=== PATIENT | female | born 1935 | race Caucasian/White ===

== ENCOUNTER → 2017-02-10 | Outpatient (CLI) | payer MEDICARE | END | disposition home or self-care (01) | LOC: WOUND 08:38 | PROVIDERS: ATTEND Physician Assistant | DX: L97.522 Non-pressure chronic ulcer of other part of left foot with fat layer exposed (principal); I12.9 Hypertensive chronic kidney disease with stage 1 through stage 4 chronic kidney disease, or unspecified chronic kidney disease; N18.3 Chronic kidney disease, stage 3 (moderate); E78.5 Hyperlipidemia, unspecified; E03.9 Hypothyroidism, unspecified; Z86.73 Personal history of transient ischemic attack (TIA), and cerebral infarction without residual deficits; Z85.51 Personal history of malignant neoplasm of bladder; Z87.891 Personal history of nicotine dependence; Z72.89 Other problems related to lifestyle | CPT/HCPCS: 11042; G0463; WOU0463 ==

== ENCOUNTER → 2017-02-17 | Outpatient (CLI) | payer MEDICARE | END | disposition home or self-care (01) | LOC: WOUND 08:46 | PROVIDERS: ATTEND Physician Assistant | DX: L97.522 Non-pressure chronic ulcer of other part of left foot with fat layer exposed (principal); M86.18 Other acute osteomyelitis, other site; E78.5 Hyperlipidemia, unspecified; I12.9 Hypertensive chronic kidney disease with stage 1 through stage 4 chronic kidney disease, or unspecified chronic kidney disease; N18.3 Chronic kidney disease, stage 3 (moderate); E03.9 Hypothyroidism, unspecified; Z86.73 Personal history of transient ischemic attack (TIA), and cerebral infarction without residual deficits; Z85.51 Personal history of malignant neoplasm of bladder; Z79.01 Long term (current) use of anticoagulants; Z72.89 Other problems related to lifestyle; Z87.891 Personal history of nicotine dependence; Z90.710 Acquired absence of both cervix and uterus | CPT/HCPCS: 97597 ==

== ENCOUNTER → 2017-02-25 | Outpatient (CLI) | payer MEDICARE | END | disposition home or self-care (01) | LOC: WOUND 12:42 | PROVIDERS: ATTEND Internal Medicine Infectious Disease | DX: L97.522 Non-pressure chronic ulcer of other part of left foot with fat layer exposed (principal); M86.172 Other acute osteomyelitis, left ankle and foot; I12.9 Hypertensive chronic kidney disease with stage 1 through stage 4 chronic kidney disease, or unspecified chronic kidney disease; N18.3 Chronic kidney disease, stage 3 (moderate); E03.9 Hypothyroidism, unspecified; E78.5 Hyperlipidemia, unspecified; Z85.51 Personal history of malignant neoplasm of bladder; Z86.73 Personal history of transient ischemic attack (TIA), and cerebral infarction without residual deficits; Z79.01 Long term (current) use of anticoagulants; Z90.710 Acquired absence of both cervix and uterus; Z87.891 Personal history of nicotine dependence; Z72.89 Other problems related to lifestyle | CPT/HCPCS: 11042; G0463; WOU0463 ==

== ENCOUNTER → 2017-02-28 | Outpatient (CLI) | payer MEDICARE ==
[~2017-02-28] MED LIST: VISIPAQUE 270 MG/ML, 50ML BOTTLE ONE
== END | disposition home or self-care (01) ==
LOC: RAD 13:02
PROVIDERS: ATTEND Family Medicine
DX: Z45.2 Encounter for adjustment and management of vascular access device (principal); M86.179 Other acute osteomyelitis, unspecified ankle and foot
CPT/HCPCS: 36569; 76937; 77001; C1751; C1769; Q9966

== ENCOUNTER → 2017-03-04 | Outpatient (CLI) | payer MEDICARE | LOC: WOUND 10:33 | PROVIDERS: ATTEND Internal Medicine | DX: S90.412D Abrasion, left great toe, subsequent encounter (principal); M86.172 Other acute osteomyelitis, left ankle and foot; I12.9 Hypertensive chronic kidney disease with stage 1 through stage 4 chronic kidney disease, or unspecified chronic kidney disease; N18.3 Chronic kidney disease, stage 3 (moderate); E78.5 Hyperlipidemia, unspecified; E03.9 Hypothyroidism, unspecified; Z86.73 Personal history of transient ischemic attack (TIA), and cerebral infarction without residual deficits; Z85.51 Personal history of malignant neoplasm of bladder; Z87.891 Personal history of nicotine dependence; Z79.01 Long term (current) use of anticoagulants; Z72.89 Other problems related to lifestyle; Z90.710 Acquired absence of both cervix and uterus; X58.XXXD Exposure to other specified factors, subsequent encounter | CPT/HCPCS: 11042 ==

== ENCOUNTER → 2017-03-13 | Outpatient (CLI) | payer MEDICARE | END | disposition home or self-care (01) | LOC: WOUND 10:36 | PROVIDERS: ATTEND Internal Medicine | DX: L97.522 Non-pressure chronic ulcer of other part of left foot with fat layer exposed (principal); M86.172 Other acute osteomyelitis, left ankle and foot; I12.9 Hypertensive chronic kidney disease with stage 1 through stage 4 chronic kidney disease, or unspecified chronic kidney disease; N18.3 Chronic kidney disease, stage 3 (moderate); M20.12 Hallux valgus (acquired), left foot; J44.9 Chronic obstructive pulmonary disease, unspecified; E03.9 Hypothyroidism, unspecified; Z86.73 Personal history of transient ischemic attack (TIA), and cerebral infarction without residual deficits; Z85.51 Personal history of malignant neoplasm of bladder; Z87.891 Personal history of nicotine dependence; Z72.89 Other problems related to lifestyle | CPT/HCPCS: 11044 ==

== ENCOUNTER → 2017-03-20 | Outpatient (CLI) | payer MEDICARE ==
[~2017-03-20] MED LIST changes: +ASPI-496 PO; +ATEN25TA PO; +CLOP75TA PO; +DIPH1TAB PO; +ERTA1VIA IV; +FOLI0.4T2 PO; +LEVO100T5 PO; +LISI-170 PO; +LOPE2CAP94 PO; +LOVA20TA2 PO; +OXYC-223 PO; +SODI650T PO; -VISIPAQUE 270 MG/ML, 50ML BOTTLE ONE; +VITA150T PO
== END | disposition home or self-care (01) ==
LOC: WOUND 09:00
PROVIDERS: ATTEND Podiatrist Foot & Ankle Surgery
DX: L97.522 Non-pressure chronic ulcer of other part of left foot with fat layer exposed (principal); I12.9 Hypertensive chronic kidney disease with stage 1 through stage 4 chronic kidney disease, or unspecified chronic kidney disease; N18.3 Chronic kidney disease, stage 3 (moderate); E78.5 Hyperlipidemia, unspecified; E03.9 Hypothyroidism, unspecified; J44.9 Chronic obstructive pulmonary disease, unspecified; M86.172 Other acute osteomyelitis, left ankle and foot; Z85.51 Personal history of malignant neoplasm of bladder; Z86.73 Personal history of transient ischemic attack (TIA), and cerebral infarction without residual deficits; Z87.891 Personal history of nicotine dependence; Z72.89 Other problems related to lifestyle
CPT/HCPCS: 11042

== ENCOUNTER → 2017-03-20 | Outpatient (CLI) | payer MEDICARE | END | disposition home or self-care (01) | LOC: CVU 06:56 | PROVIDERS: ATTEND Podiatrist Foot & Ankle Surgery | DX: I70.203 Unspecified atherosclerosis of native arteries of extremities, bilateral legs (principal); L97.524 Non-pressure chronic ulcer of other part of left foot with necrosis of bone; J44.9 Chronic obstructive pulmonary disease, unspecified; I10 Essential (primary) hypertension; Z86.73 Personal history of transient ischemic attack (TIA), and cerebral infarction without residual deficits; Z85.51 Personal history of malignant neoplasm of bladder | CPT/HCPCS: 93922; 93925 ==

== ENCOUNTER → 2017-03-27 | Outpatient (CLI) | payer MEDICARE | END | disposition home or self-care (01) | LOC: WOUND 09:30 | PROVIDERS: ATTEND Podiatrist Foot & Ankle Surgery | DX: L97.522 Non-pressure chronic ulcer of other part of left foot with fat layer exposed (principal); M86.172 Other acute osteomyelitis, left ankle and foot; M20.12 Hallux valgus (acquired), left foot; I73.9 Peripheral vascular disease, unspecified; I12.9 Hypertensive chronic kidney disease with stage 1 through stage 4 chronic kidney disease, or unspecified chronic kidney disease; N18.3 Chronic kidney disease, stage 3 (moderate); E78.5 Hyperlipidemia, unspecified; E03.9 Hypothyroidism, unspecified; Z86.73 Personal history of transient ischemic attack (TIA), and cerebral infarction without residual deficits; Z85.51 Personal history of malignant neoplasm of bladder; Z87.891 Personal history of nicotine dependence; Z72.89 Other problems related to lifestyle; Z90.710 Acquired absence of both cervix and uterus; Z79.01 Long term (current) use of anticoagulants | CPT/HCPCS: 11044 ==

== ENCOUNTER 2017-04-02 09:46 | Inpatient (IN) | payer MEDICARE ==
[~2017-04-02] VITALS: Ht 170.2 cm; Wt 63.5 kg
[2017-04-02] MEDS ORDERED: SODIUM CHLORIDE 0.9% 1,000ML IVBOLUS ONE (11:00)
[2017-04-02] MEDS ORDERED: SODIUM CHLORIDE FLUSH 10ML SYR IVF ONE (11:00)
[2017-04-02 11:44] LABS: ASPARTATE AMINO TRANSFERASE 24 U/L (15-37); BLOOD UREA NITROGEN 31 mg/dL (7-18)
[2017-04-02 11:50] LABS: IS PT STATUS REG ER OR PRE ER? YES
[2017-04-02] MEDS ORDERED: OXYC-223 PO (12:42)
[2017-04-02] MEDS ORDERED: LOVA20TA2 PO (12:42)
[2017-04-02] MEDS ORDERED: CLOP75TA PO (12:42)
[2017-04-02] MEDS ORDERED: LISI-170 PO (12:42)
[2017-04-02] MEDS ORDERED: DIPH1TAB PO (12:42)
[2017-04-02] MEDS ORDERED: LEVO100T5 PO (12:42)
[2017-04-02] MEDS ORDERED: FOLI0.4T2 PO (12:44)
[2017-04-02] MEDS ORDERED: SODI650T PO (12:44)
[2017-04-02] MEDS ORDERED: ATEN25TA PO (12:44)
[2017-04-02] MEDS ORDERED: VITA150T PO (12:44)
[2017-04-02] MEDS ORDERED: ASPI-496 PO (12:45)
[2017-04-02] MEDS ORDERED: LOPE2CAP94 PO (12:45)
[2017-04-02] MEDS ORDERED: ERTA1VIA IV (12:46)
[2017-04-02] MEDS ORDERED: CEFTRIAXONE PMX 1GM/50ML 50 ML IV ONE (14:00)
[2017-04-02] MEDS ORDERED: CEFTRIAXONE PMX 1GM/50ML 50 ML ONE (14:00)
[2017-04-02 14:35] LABS: C-REACTIVE PROTEIN, QUANT 0.09 mg/dL (0.02-0.49)
[2017-04-02 15:33] VITALS: BP 98/60
[2017-04-02] MEDS ORDERED: D5%-0.45NACL+KCL 20MEQ 1,000 ML IV SCH (16:27)
[2017-04-02] MEDS ORDERED: LABETALOL 5MG/ML, 20ML IVPush PRN (16:30)
[2017-04-02] MEDS ORDERED: ACETAMINOPHEN 325 MG TABLET PO PRN (16:30)
[2017-04-02] MEDS ORDERED: CALCIUM GLUCONATE 4.6 MEQ in SODIUM CHLORIDE 0.9% 50 ML IV ONE (18:00)
[2017-04-02 19:21] VITALS: BP 127/77
[2017-04-02] MEDS ORDERED: OXYcodone/APAP 7.5/325MG TABLET PO SCH (21:00)
[2017-04-02] MEDS: MEROPENEM 500 MG in SODIUM CHLORIDE 0.9% 100 ML IV SCH (21:04)
[2017-04-02] MEDS: DIPHENOXYLATE/ATROPINE TABLET PO SCH (22:08)
[2017-04-02] MEDS: HEPARIN 5,000 UNITS/ML, 1ML SQ SCH (22:08)
[2017-04-02] MEDS: SIMVASTATIN 10 MG TABLET PO SCH (22:08)
[2017-04-02 22:29] VITALS: BP 130/73
[2017-04-03] VITALS (7 sets, daily range): BP systolic 105–165; BP diastolic 64–91
[2017-04-03] MEDS: HEPARIN 5,000 UNITS/ML, 1ML SQ SCH ×3 (05:30→22:27)
[2017-04-03 06:02] LABS: BLOOD UREA NITROGEN 25 mg/dL (7-18)
[2017-04-03] MEDS ORDERED: ERTAPENEM 1 GM IV SCH (09:00)
[2017-04-03] MEDS ORDERED: ATENOLOL 25 MG TABLET PO SCH (09:00)
[2017-04-03] MEDS: MEROPENEM 500 MG in SODIUM CHLORIDE 0.9% 100 ML IV SCH (09:00)
[2017-04-03] MEDS: LOPERAMIDE 2 MG CAPSULE PO SCH ×3 (09:15→18:26)
[2017-04-03] MEDS: LEVOTHYROXINE 100 MCG TABLET PO SCH (09:16)
[2017-04-03] MEDS: FOLIC ACID 1 MG TABLET PO SCH (09:16)
[2017-04-03] MEDS: ATENOLOL 25 MG TABLET PO SCH (09:16)
[2017-04-03] MEDS: SODIUM BICARBONATE 650 MG TABLET PO SCH (09:16)
[2017-04-03] MEDS: CLOPIDOGREL 75 MG TABLET PO SCH (09:16)
[2017-04-03] MEDS: ASPIRIN 81 MG TABLET EC PO SCH (09:16)
[2017-04-03] MEDS: DIPHENOXYLATE/ATROPINE TABLET PO SCH ×3 (09:18→20:25)
[2017-04-03] MEDS: MULTIVITS,STRESS FORMULA 1 TABLET PO SCH (09:18)
[2017-04-03] MEDS: OXYcodone/APAP 7.5/325MG TABLET PO PRN (10:14)
[2017-04-03] MEDS ORDERED: LABETALOL 5MG/ML, 20ML IVPush PRN (14:12)
[2017-04-03] MEDS ORDERED: PIPERACILLIN/TAZO/PMX 2.25GM 50 ML IV SCH (15:00)
[2017-04-03] MEDS: SIMVASTATIN 10 MG TABLET PO SCH (20:24)
[2017-04-03] MEDS: PIPERACILLIN/TAZO 2.25 GM in SODIUM CHLORIDE 0.9% 100 ML IV SCH (20:24)
[2017-04-04] MEDS: PIPERACILLIN/TAZO 2.25 GM in SODIUM CHLORIDE 0.9% 100 ML IV SCH ×3 (02:47→21:44)
[2017-04-04 04:00] VITALS: BP 145/81
[2017-04-04 05:56] LABS: BLOOD UREA NITROGEN 25 mg/dL (7-18)
[2017-04-04] MEDS: HEPARIN 5,000 UNITS/ML, 1ML SQ SCH ×2 (06:12→16:40)
[2017-04-04 06:44] VITALS: BP 146/80
[2017-04-04 06:45] VITALS: BP 150/87
[2017-04-04 06:46] VITALS: BP 154/98
[2017-04-04] MEDS: LOPERAMIDE 2 MG CAPSULE PO SCH ×3 (07:00→16:00)
[2017-04-04] MEDS: LEVOTHYROXINE 100 MCG TABLET PO SCH (08:34)
[2017-04-04] MEDS: ATENOLOL 25 MG TABLET PO SCH (08:34)
[2017-04-04] MEDS: CLOPIDOGREL 75 MG TABLET PO SCH (08:34)
[2017-04-04] MEDS: ASPIRIN 81 MG TABLET EC PO SCH (08:34)
[2017-04-04] MEDS: DIPHENOXYLATE/ATROPINE TABLET PO SCH ×3 (08:34→21:44)
[2017-04-04] MEDS: FOLIC ACID 1 MG TABLET PO SCH (08:34)
[2017-04-04] MEDS: SODIUM BICARBONATE 650 MG TABLET PO SCH (08:35)
[2017-04-04] MEDS: MULTIVITS,STRESS FORMULA 1 TABLET PO SCH (08:35)
[2017-04-04] MEDS: PIPERACILLIN/TAZO/PMX 2.25GM 50 ML IV SCH ×2 (10:34→16:40)
[2017-04-04 14:00] VITALS: BP 145/73
[2017-04-04 20:30] VITALS: BP_SYST 122; BP_SYST 129; BP_SYST 130; BP_DIAS 61; BP_DIAS 69; BP_DIAS 82
[2017-04-04] MEDS: MELATONIN 3 MG TABLET PO PRN (21:44)
[2017-04-04] MEDS: SIMVASTATIN 10 MG TABLET PO SCH (21:45)
[2017-04-05] MEDS: HEPARIN 5,000 UNITS/ML, 1ML SQ SCH ×3 (01:31→17:23)
[2017-04-05 02:00] VITALS: BP 125/68
[2017-04-05 02:05] VITALS: BP 131/77
[2017-04-05 02:07] VITALS: BP 118/68
[2017-04-05] MEDS: PIPERACILLIN/TAZO 2.25 GM in SODIUM CHLORIDE 0.9% 100 ML IV SCH ×2 (03:15→08:24)
[2017-04-05 06:30] VITALS: BP_SYST 121; BP_SYST 126; BP_SYST 131; BP_DIAS 77; BP_DIAS 78; BP_DIAS 82
[2017-04-05] MEDS: LOPERAMIDE 2 MG CAPSULE PO SCH ×4 (07:00→20:27)
[2017-04-05] MEDS: DIPHENOXYLATE/ATROPINE TABLET PO SCH ×3 (08:22→19:22)
[2017-04-05] MEDS: MULTIVITS,STRESS FORMULA 1 TABLET PO SCH (08:23)
[2017-04-05] MEDS: ASPIRIN 81 MG TABLET EC PO SCH (08:23)
[2017-04-05] MEDS: FOLIC ACID 1 MG TABLET PO SCH (08:23)
[2017-04-05] MEDS: CLOPIDOGREL 75 MG TABLET PO SCH (08:23)
[2017-04-05] MEDS: SODIUM BICARBONATE 650 MG TABLET PO SCH (08:23)
[2017-04-05] MEDS: ATENOLOL 25 MG TABLET PO SCH (08:23)
[2017-04-05] MEDS: LEVOTHYROXINE 100 MCG TABLET PO SCH (08:23)
[2017-04-05 13:28] VITALS: BP 125/64
[2017-04-05] MEDS: PIPERACILLIN/TAZO/PMX 2.25GM 50 ML IVPB SCH ×2 (15:05→20:27)
[2017-04-05 20:11] VITALS: BP 142/81
[2017-04-05] MEDS: SIMVASTATIN 10 MG TABLET PO SCH (20:27)
[2017-04-05] MEDS: MELATONIN 3 MG TABLET PO PRN (23:12)
[2017-04-05] MEDS: OXYcodone/APAP 7.5/325MG TABLET PO PRN (23:12)
[2017-04-06 00:44] VITALS: BP 131/74
[2017-04-06] MEDS: HEPARIN 5,000 UNITS/ML, 1ML SQ SCH ×3 (01:00→17:56)
[2017-04-06] MEDS: PIPERACILLIN/TAZO/PMX 2.25GM 50 ML IVPB SCH ×4 (03:25→20:13)
[2017-04-06 07:39] VITALS: BP 136/77
[2017-04-06] MEDS: DIPHENOXYLATE/ATROPINE TABLET PO SCH ×3 (09:00→20:13)
[2017-04-06] MEDS: MULTIVITS,STRESS FORMULA 1 TABLET PO SCH (09:35)
[2017-04-06] MEDS: CLOPIDOGREL 75 MG TABLET PO SCH (09:36)
[2017-04-06] MEDS: LOPERAMIDE 2 MG CAPSULE PO SCH ×4 (09:36→20:13)
[2017-04-06] MEDS: ASPIRIN 81 MG TABLET EC PO SCH (09:36)
[2017-04-06] MEDS: FOLIC ACID 1 MG TABLET PO SCH (09:36)
[2017-04-06] MEDS: SODIUM BICARBONATE 650 MG TABLET PO SCH (09:36)
[2017-04-06] MEDS: ATENOLOL 25 MG TABLET PO SCH (09:36)
[2017-04-06] MEDS: LEVOTHYROXINE 100 MCG TABLET PO SCH (09:36)
[2017-04-06 12:21] VITALS: BP 125/68
[2017-04-06 18:56] VITALS: BP 117/72
[2017-04-06] MEDS: SIMVASTATIN 10 MG TABLET PO SCH (20:13)
[2017-04-06] MEDS: MELATONIN 3 MG TABLET PO PRN (20:13)
[2017-04-07] MEDS: PIPERACILLIN/TAZO/PMX 2.25GM 50 ML IVPB SCH ×6 (01:00→20:47)
[2017-04-07] MEDS: HEPARIN 5,000 UNITS/ML, 1ML SQ SCH ×3 (03:47→16:53)
[2017-04-07 04:00] VITALS: BP 119/70
[2017-04-07 05:39] LABS: ASPARTATE AMINO TRANSFERASE 43 U/L (15-37); BLOOD UREA NITROGEN 26 mg/dL (7-18); C-REACTIVE PROTEIN, QUANT 0.12 mg/dL (0.02-0.49)
[2017-04-07 07:48] VITALS: BP 128/74
[2017-04-07] MEDS: CLOPIDOGREL 75 MG TABLET PO SCH (08:45)
[2017-04-07] MEDS: ASPIRIN 81 MG TABLET EC PO SCH (08:45)
[2017-04-07] MEDS: FOLIC ACID 1 MG TABLET PO SCH (08:45)
[2017-04-07] MEDS: MULTIVITS,STRESS FORMULA 1 TABLET PO SCH (08:45)
[2017-04-07] MEDS: LOPERAMIDE 2 MG CAPSULE PO SCH ×4 (08:45→20:47)
[2017-04-07] MEDS: LEVOTHYROXINE 100 MCG TABLET PO SCH (08:45)
[2017-04-07] MEDS: DIPHENOXYLATE/ATROPINE TABLET PO SCH (08:46)
[2017-04-07] MEDS: SODIUM BICARBONATE 650 MG TABLET PO SCH (08:47)
[2017-04-07] MEDS: ATENOLOL 25 MG TABLET PO SCH (08:47)
[2017-04-07] MEDS ORDERED: DIPHENOXYLATE/ATROPINE TABLET PO PRN (11:30)
[2017-04-07] MEDS: OXYcodone/APAP 7.5/325MG TABLET PO PRN ×2 (13:57→21:27)
[2017-04-07 15:22] VITALS: BP 107/69
[2017-04-07] MEDS: SODIUM CHLORIDE 0.9% 1,000 ML IV SCH (18:28)
[2017-04-07] MEDS: SIMVASTATIN 10 MG TABLET PO SCH (20:47)
[2017-04-07] MEDS: MELATONIN 3 MG TABLET PO PRN (20:47)
[2017-04-07 20:50] VITALS: BP 108/65
[2017-04-08 02:00] VITALS: BP 121/77
[2017-04-08] MEDS: HEPARIN 5,000 UNITS/ML, 1ML SQ SCH ×3 (04:35→17:04)
[2017-04-08] MEDS: SODIUM CHLORIDE 0.9% 1,000 ML IV SCH ×2 (04:35→10:30)
[2017-04-08 05:46] LABS: BLOOD UREA NITROGEN 27 mg/dL (7-18)
[2017-04-08 07:12] VITALS: BP 127/73
[2017-04-08] MEDS: CLOPIDOGREL 75 MG TABLET PO SCH (08:18)
[2017-04-08] MEDS: ASPIRIN 81 MG TABLET EC PO SCH (08:18)
[2017-04-08] MEDS: MULTIVITS,STRESS FORMULA 1 TABLET PO SCH (08:18)
[2017-04-08] MEDS: LEVOTHYROXINE 100 MCG TABLET PO SCH (08:18)
[2017-04-08] MEDS: LOPERAMIDE 2 MG CAPSULE PO SCH ×4 (08:18→20:04)
[2017-04-08] MEDS: SODIUM BICARBONATE 650 MG TABLET PO SCH (08:18)
[2017-04-08] MEDS: FOLIC ACID 1 MG TABLET PO SCH (08:18)
[2017-04-08] MEDS: ATENOLOL 25 MG TABLET PO SCH (08:18)
[2017-04-08] MEDS: PIPERACILLIN/TAZO/PMX 2.25GM 50 ML IVPB SCH ×3 (09:34→21:39)
[2017-04-08] MEDS: OXYcodone/APAP 7.5/325MG TABLET PO PRN ×2 (12:04→20:04)
[2017-04-08 19:25] VITALS: BP 143/83
[2017-04-08] MEDS: SIMVASTATIN 10 MG TABLET PO SCH (20:04)
[2017-04-09 00:53] VITALS: BP 143/78
[2017-04-09] MEDS: HEPARIN 5,000 UNITS/ML, 1ML SQ SCH ×3 (01:00→15:54)
[2017-04-09] MEDS: PIPERACILLIN/TAZO/PMX 2.25GM 50 ML IVPB SCH ×4 (04:31→20:27)
[2017-04-09] MEDS: LOPERAMIDE 2 MG CAPSULE PO SCH ×4 (07:00→20:27)
[2017-04-09 07:37] VITALS: BP 117/68
[2017-04-09] MEDS ORDERED: PROTAMINE SULFATE 10 MG/ML, 25ML ONE (07:56)
[2017-04-09] MEDS ORDERED: NITROGLYCERIN 5 MG/ML, 10ML ONE (07:56)
[2017-04-09] MEDS ORDERED: HEPARIN 1,000 UNITS/ML, 10ML ONE (07:56)
[2017-04-09] MEDS ORDERED: MIDAZOLAM 1 MG/ML, 5ML ONE (07:56)
[2017-04-09] MEDS ORDERED: NALOXONE 1 MG/ML, 2ML ONE (07:56)
[2017-04-09] MEDS ORDERED: FENTANYL PF 100 MCG/2ML ONE (07:56)
[2017-04-09] MEDS ORDERED: FLUMAZENIL 0.1 MG/1 ML, 5ML ONE (07:56)
[2017-04-09] MEDS: SODIUM CHLORIDE 0.9% 1,000 ML IV SCH ×3 (08:00→09:39)
[2017-04-09] MEDS: LEVOTHYROXINE 100 MCG TABLET PO SCH (08:00)
[2017-04-09] MEDS ORDERED: LIDOCAINE 2%, 20ML ONE (08:11)
[2017-04-09] MEDS: ASPIRIN 81 MG TABLET EC PO SCH (08:14)
[2017-04-09] MEDS: MULTIVITS,STRESS FORMULA 1 TABLET PO SCH (08:15)
[2017-04-09] MEDS: FOLIC ACID 1 MG TABLET PO SCH (08:16)
[2017-04-09] MEDS: CLOPIDOGREL 75 MG TABLET PO SCH (08:16)
[2017-04-09] MEDS: SODIUM BICARBONATE 650 MG TABLET PO SCH (08:16)
[2017-04-09] MEDS ORDERED: ONDANSETRON 2MG/ML, 2ML ONE (08:16)
[2017-04-09] MEDS: ATENOLOL 25 MG TABLET PO SCH (08:16)
[2017-04-09] MEDS: OXYcodone/APAP 7.5/325MG TABLET PO PRN (10:26)
[2017-04-09 13:50] VITALS: BP 108/66
[2017-04-09 20:00] VITALS: BP 93/55
[2017-04-09] MEDS: SIMVASTATIN 10 MG TABLET PO SCH (20:27)
[2017-04-10 02:00] VITALS: BP 96/64
[2017-04-10] MEDS: PIPERACILLIN/TAZO/PMX 2.25GM 50 ML IVPB SCH (03:47)
[2017-04-10] MEDS: HEPARIN 5,000 UNITS/ML, 1ML SQ SCH ×3 (03:48→16:02)
[2017-04-10 07:15] VITALS: BP 110/68
[2017-04-10] MEDS: MULTIVITS,STRESS FORMULA 1 TABLET PO SCH (08:38)
[2017-04-10] MEDS: CLOPIDOGREL 75 MG TABLET PO SCH (08:39)
[2017-04-10] MEDS: FOLIC ACID 1 MG TABLET PO SCH (08:39)
[2017-04-10] MEDS: ATENOLOL 25 MG TABLET PO SCH (08:39)
[2017-04-10] MEDS: SODIUM BICARBONATE 650 MG TABLET PO SCH (08:39)
[2017-04-10] MEDS: LOPERAMIDE 2 MG CAPSULE PO SCH ×4 (08:39→21:12)
[2017-04-10] MEDS: ASPIRIN 81 MG TABLET EC PO SCH (08:39)
[2017-04-10] MEDS: LEVOTHYROXINE 100 MCG TABLET PO SCH (08:39)
[2017-04-10] MEDS: PIPERACILLIN/TAZO 2.25 GM in SODIUM CHLORIDE 0.9% 50 ML IVPB SCH ×3 (09:28→21:13)
[2017-04-10] MEDS ORDERED: PIPERACILLIN/TAZO 2.25 GM in SODIUM CHLORIDE 0.9% 50 ML IVPB SCH (09:30)
[2017-04-10 14:00] VITALS: BP 111/67
[2017-04-10 20:00] VITALS: BP 115/70
[2017-04-10] MEDS: SIMVASTATIN 10 MG TABLET PO SCH (21:12)
[2017-04-11 02:00] VITALS: BP 118/68
[2017-04-11] MEDS: HEPARIN 5,000 UNITS/ML, 1ML SQ SCH ×2 (03:34→08:43)
[2017-04-11] MEDS: PIPERACILLIN/TAZO 2.25 GM in SODIUM CHLORIDE 0.9% 50 ML IVPB SCH ×2 (03:34→08:42)
[2017-04-11] MEDS: LOPERAMIDE 2 MG CAPSULE PO SCH ×2 (06:02→10:59)
[2017-04-11 07:49] VITALS: BP 120/71
[2017-04-11] MEDS: SODIUM BICARBONATE 650 MG TABLET PO SCH (08:42)
[2017-04-11] MEDS: ATENOLOL 25 MG TABLET PO SCH (08:42)
[2017-04-11] MEDS: MULTIVITS,STRESS FORMULA 1 TABLET PO SCH (08:43)
[2017-04-11] MEDS: ASPIRIN 81 MG TABLET EC PO SCH (08:43)
[2017-04-11] MEDS: FOLIC ACID 1 MG TABLET PO SCH (08:43)
[2017-04-11] MEDS: LEVOTHYROXINE 100 MCG TABLET PO SCH (08:43)
[2017-04-11] MEDS: CLOPIDOGREL 75 MG TABLET PO SCH (08:43)
[2017-04-11] MEDS ORDERED: TIOT18CA INH (09:38)
== END 2017-04-11 12:42 | disposition home or self-care (01) | DRG 637 ==
LOC: ED 13:44 → EDIP 13:45 → ED 13:50 → 3NW 15:29 → 4EST 20:29 → DCLOUNGE 04-11 12:00
PROVIDERS: ADMIT Family Medicine; ATTEND Family Medicine
PROC: 0T9B70Z Drainage of Bladder with Drainage Device, Via Natural or Artificial Opening (ICD-10-PCS; principal; 2017-04-02)
DX: E11.69 Type 2 diabetes mellitus with other specified complication (principal); J96.20 Acute and chronic respiratory failure, unspecified whether with hypoxia or hypercapnia; I13.2 Hypertensive heart and chronic kidney disease with heart failure and with stage 5 chronic kidney disease, or end stage renal disease; K91.2 Postsurgical malabsorption, not elsewhere classified; J44.1 Chronic obstructive pulmonary disease with (acute) exacerbation; M86.8X7 Other osteomyelitis, ankle and foot; N18.5 Chronic kidney disease, stage 5; I73.9 Peripheral vascular disease, unspecified; E03.9 Hypothyroidism, unspecified; E11.22 Type 2 diabetes mellitus with diabetic chronic kidney disease; E11.621 Type 2 diabetes mellitus with foot ulcer; E78.5 Hyperlipidemia, unspecified; E83.51 Hypocalcemia; E86.0 Dehydration; I50.9 Heart failure, unspecified; K52.9 Noninfective gastroenteritis and colitis, unspecified; B95.61 Methicillin susceptible Staphylococcus aureus infection as the cause of diseases classified elsewhere; T36.1X5A Adverse effect of cephalosporins and other beta-lactam antibiotics, initial encounter; T36.8X5A Adverse effect of other systemic antibiotics, initial encounter; L97.529 Non-pressure chronic ulcer of other part of left foot with unspecified severity; M41.80 Other forms of scoliosis, site unspecified; M47.9 Spondylosis, unspecified; W18.39XA Other fall on same level, initial encounter; Y93.01 Activity, walking, marching and hiking; N30.90 Cystitis, unspecified without hematuria; Z79.02 Long term (current) use of antithrombotics/antiplatelets; Z79.82 Long term (current) use of aspirin; Z85.51 Personal history of malignant neoplasm of bladder; Z86.73 Personal history of transient ischemic attack (TIA), and cerebral infarction without residual deficits; Z86.79 Personal history of other diseases of the circulatory system; Z87.891 Personal history of nicotine dependence; Z90.49 Acquired absence of other specified parts of digestive tract; Z90.710 Acquired absence of both cervix and uterus; Z91.19 Patient's noncompliance with other medical treatment and regimen; Z99.81 Dependence on supplemental oxygen; Y92.092 Bedroom in other non-institutional residence as the place of occurrence of the external cause; Y99.8 Other external cause status
CPT/HCPCS: 36200; 36245; 36415; 71010; 75630; 80048; 80053; 80061; 81001; 82550; 83036; 83735; 83880; 84439; 84443; 84484; 85025; 85610; 85651; 85730; 86140; 87086; 87324; 89055; 93005; 93306; 96361; 96365; 99156; 99157; J0610; J0696; J1644; J2185; J2250; J2405; J2543; J2720; J3010; J3490; C1751; J2310; J3480; J7030; J7512

== ENCOUNTER → 2017-04-22 | Outpatient (CLI) | payer MEDICARE ==
[~2017-04-22] MED LIST changes: +PIPE3.375 IVPB; +TIOT18CA INH
== END | disposition home or self-care (01) ==
LOC: WOUND 12:45
PROVIDERS: ATTEND Internal Medicine Infectious Disease
DX: E11.621 Type 2 diabetes mellitus with foot ulcer (principal); L97.522 Non-pressure chronic ulcer of other part of left foot with fat layer exposed; I13.2 Hypertensive heart and chronic kidney disease with heart failure and with stage 5 chronic kidney disease, or end stage renal disease; E11.22 Type 2 diabetes mellitus with diabetic chronic kidney disease; N18.5 Chronic kidney disease, stage 5; I50.9 Heart failure, unspecified; E78.5 Hyperlipidemia, unspecified; E11.69 Type 2 diabetes mellitus with other specified complication; M86.172 Other acute osteomyelitis, left ankle and foot; E03.9 Hypothyroidism, unspecified; E11.51 Type 2 diabetes mellitus with diabetic peripheral angiopathy without gangrene; J44.1 Chronic obstructive pulmonary disease with (acute) exacerbation; Z88.1 Allergy status to other antibiotic agents; Z86.73 Personal history of transient ischemic attack (TIA), and cerebral infarction without residual deficits; Z85.51 Personal history of malignant neoplasm of bladder; Z87.891 Personal history of nicotine dependence; Z90.710 Acquired absence of both cervix and uterus; Z90.49 Acquired absence of other specified parts of digestive tract; Z86.14 Personal history of Methicillin resistant Staphylococcus aureus infection; Z79.01 Long term (current) use of anticoagulants; Z72.89 Other problems related to lifestyle
CPT/HCPCS: 11042

== ENCOUNTER → 2017-05-01 | Outpatient (CLI) | payer MEDICARE | END | disposition home or self-care (01) | LOC: WOUND 12:48 | PROVIDERS: ATTEND Podiatrist Foot & Ankle Surgery | DX: E11.621 Type 2 diabetes mellitus with foot ulcer (principal); L97.522 Non-pressure chronic ulcer of other part of left foot with fat layer exposed; E11.69 Type 2 diabetes mellitus with other specified complication; M86.172 Other acute osteomyelitis, left ankle and foot; M86.8X7 Other osteomyelitis, ankle and foot; E11.22 Type 2 diabetes mellitus with diabetic chronic kidney disease; I13.0 Hypertensive heart and chronic kidney disease with heart failure and stage 1 through stage 4 chronic kidney disease, or unspecified chronic kidney disease; N18.3 Chronic kidney disease, stage 3 (moderate); I50.9 Heart failure, unspecified; E78.5 Hyperlipidemia, unspecified; E03.9 Hypothyroidism, unspecified; Z86.73 Personal history of transient ischemic attack (TIA), and cerebral infarction without residual deficits; G89.29 Other chronic pain; Z85.51 Personal history of malignant neoplasm of bladder; Z87.891 Personal history of nicotine dependence; Z72.89 Other problems related to lifestyle; Z90.710 Acquired absence of both cervix and uterus; E11.51 Type 2 diabetes mellitus with diabetic peripheral angiopathy without gangrene; J44.9 Chronic obstructive pulmonary disease, unspecified; Z86.14 Personal history of Methicillin resistant Staphylococcus aureus infection; Z79.01 Long term (current) use of anticoagulants; Z79.82 Long term (current) use of aspirin | CPT/HCPCS: 97597 ==

== ENCOUNTER → 2017-05-08 | Outpatient (CLI) | payer MEDICARE | END | disposition home or self-care (01) | LOC: WOUND 13:25 | PROVIDERS: ATTEND Podiatrist Foot & Ankle Surgery | DX: E11.621 Type 2 diabetes mellitus with foot ulcer (principal); L97.522 Non-pressure chronic ulcer of other part of left foot with fat layer exposed; I50.9 Heart failure, unspecified; N18.5 Chronic kidney disease, stage 5; I13.2 Hypertensive heart and chronic kidney disease with heart failure and with stage 5 chronic kidney disease, or end stage renal disease; E11.22 Type 2 diabetes mellitus with diabetic chronic kidney disease; E11.69 Type 2 diabetes mellitus with other specified complication; M86.172 Other acute osteomyelitis, left ankle and foot; E78.5 Hyperlipidemia, unspecified; E03.9 Hypothyroidism, unspecified; J44.9 Chronic obstructive pulmonary disease, unspecified; E11.51 Type 2 diabetes mellitus with diabetic peripheral angiopathy without gangrene; Z90.49 Acquired absence of other specified parts of digestive tract; Z79.01 Long term (current) use of anticoagulants; Z86.73 Personal history of transient ischemic attack (TIA), and cerebral infarction without residual deficits; Z85.51 Personal history of malignant neoplasm of bladder; Z87.891 Personal history of nicotine dependence; Z72.89 Other problems related to lifestyle; Z90.710 Acquired absence of both cervix and uterus; Z79.02 Long term (current) use of antithrombotics/antiplatelets; Z86.19 Personal history of other infectious and parasitic diseases | CPT/HCPCS: 11042 ==

== ENCOUNTER → 2017-05-15 | Outpatient (CLI) | payer MEDICARE | END | disposition home or self-care (01) | LOC: WOUND 13:00 | PROVIDERS: ATTEND Podiatrist Foot & Ankle Surgery | DX: E11.621 Type 2 diabetes mellitus with foot ulcer (principal); L97.522 Non-pressure chronic ulcer of other part of left foot with fat layer exposed; E11.69 Type 2 diabetes mellitus with other specified complication; M86.172 Other acute osteomyelitis, left ankle and foot; I50.9 Heart failure, unspecified; N18.5 Chronic kidney disease, stage 5; I13.2 Hypertensive heart and chronic kidney disease with heart failure and with stage 5 chronic kidney disease, or end stage renal disease; E11.22 Type 2 diabetes mellitus with diabetic chronic kidney disease; E78.5 Hyperlipidemia, unspecified; E03.9 Hypothyroidism, unspecified; J44.9 Chronic obstructive pulmonary disease, unspecified; E11.51 Type 2 diabetes mellitus with diabetic peripheral angiopathy without gangrene; Z86.73 Personal history of transient ischemic attack (TIA), and cerebral infarction without residual deficits; Z79.01 Long term (current) use of anticoagulants; Z85.51 Personal history of malignant neoplasm of bladder; Z87.891 Personal history of nicotine dependence; Z72.89 Other problems related to lifestyle; Z90.710 Acquired absence of both cervix and uterus; Z90.49 Acquired absence of other specified parts of digestive tract; Z79.02 Long term (current) use of antithrombotics/antiplatelets; Z86.19 Personal history of other infectious and parasitic diseases; Z79.82 Long term (current) use of aspirin; Z86.14 Personal history of Methicillin resistant Staphylococcus aureus infection | CPT/HCPCS: 97597 ==

== ENCOUNTER → 2017-05-22 | Outpatient (CLI) | payer MEDICARE | END | disposition home or self-care (01) | LOC: WOUND 13:17 | PROVIDERS: ATTEND Podiatrist Foot & Ankle Surgery | DX: E11.621 Type 2 diabetes mellitus with foot ulcer (principal); L97.522 Non-pressure chronic ulcer of other part of left foot with fat layer exposed; E11.22 Type 2 diabetes mellitus with diabetic chronic kidney disease; I13.2 Hypertensive heart and chronic kidney disease with heart failure and with stage 5 chronic kidney disease, or end stage renal disease; N18.5 Chronic kidney disease, stage 5; I50.9 Heart failure, unspecified; E11.69 Type 2 diabetes mellitus with other specified complication; M86.172 Other acute osteomyelitis, left ankle and foot; E78.5 Hyperlipidemia, unspecified; E03.9 Hypothyroidism, unspecified; J44.1 Chronic obstructive pulmonary disease with (acute) exacerbation; E11.51 Type 2 diabetes mellitus with diabetic peripheral angiopathy without gangrene; Z85.51 Personal history of malignant neoplasm of bladder; Z86.14 Personal history of Methicillin resistant Staphylococcus aureus infection; Z99.2 Dependence on renal dialysis; Z79.4 Long term (current) use of insulin; Z90.49 Acquired absence of other specified parts of digestive tract; Z90.710 Acquired absence of both cervix and uterus; Z87.891 Personal history of nicotine dependence; Z86.19 Personal history of other infectious and parasitic diseases; Z86.73 Personal history of transient ischemic attack (TIA), and cerebral infarction without residual deficits; Z88.1 Allergy status to other antibiotic agents; Z79.01 Long term (current) use of anticoagulants; Z79.82 Long term (current) use of aspirin | CPT/HCPCS: 97597 ==

== ENCOUNTER → 2017-05-29 | Outpatient (CLI) | payer MEDICARE ==
[~2017-05-29] MED LIST changes: -OXYC-223 PO; +OXYC-306 PO
== END | disposition home or self-care (01) ==
LOC: WOUND 09:05
PROVIDERS: ATTEND Podiatrist Foot & Ankle Surgery
DX: E11.621 Type 2 diabetes mellitus with foot ulcer (principal); L97.522 Non-pressure chronic ulcer of other part of left foot with fat layer exposed; E11.69 Type 2 diabetes mellitus with other specified complication; M86.172 Other acute osteomyelitis, left ankle and foot; M86.8X7 Other osteomyelitis, ankle and foot; E11.22 Type 2 diabetes mellitus with diabetic chronic kidney disease; I13.2 Hypertensive heart and chronic kidney disease with heart failure and with stage 5 chronic kidney disease, or end stage renal disease; N18.5 Chronic kidney disease, stage 5; I50.9 Heart failure, unspecified; Z99.2 Dependence on renal dialysis; E78.5 Hyperlipidemia, unspecified; E03.9 Hypothyroidism, unspecified; Z79.82 Long term (current) use of aspirin; Z79.4 Long term (current) use of insulin; Z87.891 Personal history of nicotine dependence; Z86.73 Personal history of transient ischemic attack (TIA), and cerebral infarction without residual deficits; E11.51 Type 2 diabetes mellitus with diabetic peripheral angiopathy without gangrene; Z79.01 Long term (current) use of anticoagulants; Z90.710 Acquired absence of both cervix and uterus; Z72.89 Other problems related to lifestyle
CPT/HCPCS: 11042

== ENCOUNTER → 2017-07-10 | Outpatient (CLI) | payer MEDICARE | END | disposition home or self-care (01) | LOC: WOUND 14:08 | PROVIDERS: ATTEND Podiatrist Foot & Ankle Surgery | DX: E11.621 Type 2 diabetes mellitus with foot ulcer (principal); L97.522 Non-pressure chronic ulcer of other part of left foot with fat layer exposed; E11.69 Type 2 diabetes mellitus with other specified complication; M86.172 Other acute osteomyelitis, left ankle and foot; J44.1 Chronic obstructive pulmonary disease with (acute) exacerbation; E78.5 Hyperlipidemia, unspecified; E03.9 Hypothyroidism, unspecified; E11.51 Type 2 diabetes mellitus with diabetic peripheral angiopathy without gangrene; E11.22 Type 2 diabetes mellitus with diabetic chronic kidney disease; I13.2 Hypertensive heart and chronic kidney disease with heart failure and with stage 5 chronic kidney disease, or end stage renal disease; N18.5 Chronic kidney disease, stage 5; I50.9 Heart failure, unspecified; Z85.51 Personal history of malignant neoplasm of bladder; Z86.14 Personal history of Methicillin resistant Staphylococcus aureus infection; Z86.73 Personal history of transient ischemic attack (TIA), and cerebral infarction without residual deficits; Z87.891 Personal history of nicotine dependence; Z90.710 Acquired absence of both cervix and uterus; Z90.49 Acquired absence of other specified parts of digestive tract; Z79.01 Long term (current) use of anticoagulants; Z79.82 Long term (current) use of aspirin; Z79.4 Long term (current) use of insulin; Z99.2 Dependence on renal dialysis | CPT/HCPCS: 97597 ==

== ENCOUNTER → 2018-05-07 | Outpatient (CLI) | payer MEDICARE | END | disposition home or self-care (01) | LOC: CVU 06:38 | PROVIDERS: ATTEND Psychiatry & Neurology Neurology | DX: I63.9 Cerebral infarction, unspecified (principal); I10 Essential (primary) hypertension; I08.3 Combined rheumatic disorders of mitral, aortic and tricuspid valves; J44.9 Chronic obstructive pulmonary disease, unspecified; H54.7 Unspecified visual loss; I73.9 Peripheral vascular disease, unspecified; N28.9 Disorder of kidney and ureter, unspecified; R53.1 Weakness | CPT/HCPCS: 70551; 93306; 93880 ==